=== PATIENT | female | born 1970 | race Caucasian/White ===

== ENCOUNTER 2017-03-23 11:46 | Emergency (ER) | payer OTHER ==
[2017-03-23 12:21] LABS: BASOPHIL COUNT 0.1 K/uL (0-0.1); EOSINOPHIL (%) 2.7 % (0-5); EOSINOPHIL COUNT 0.3 K/uL (0-0.3); HEMATOCRIT 45.6 % (36.0-46.0); IMMATURE GRANULOCYTE (%) 1.3 % (0.0-0.7); IMMATURE GRANULOCYTE COUNT 0.2 K/uL; INSTRUMENT ABS NEUTROPHIL CT 7.2 K/uL; LYMPHOCYTE COUNT 3.5 K/uL (1.0-2.8); MCH 31.2 PG (29.0-34.0); MCHC 33.3 G/DL (30.0-36.0); MCV 93.6 FL (83-99); MEAN PLAT.VOLUME 11.8 uM^3 (9.5-12.4); MONOCYTE (%) 9.2 % (3-12); MONOCYTE COUNT 1.1 K/uL (0-0.8); NEUTROPHIL (%) 58.3 % (45-76); NEUTROPHIL COUNT 7.2 K/uL (1.8-6.4); PLATELET COUNT 238 K/uL (156-360); RBC DIS.WIDTH-CV 12.3 % (11.8-14.6); RBC DIS.WIDTH-SD 42.4 % (39-53); RED BLOOD COUNT 4.87 M/uL (3.80-5.20); WHITE BLOOD COUNT 12.3 K/uL (4.1-10.2)
[2017-03-23 12:25] LABS: AMYLASE 69 IU/L (1-118); CHLORIDE 103 mEq/L (99-109); POTASSIUM 4.7 mEq/L (3.7-5.4); SODIUM 139 mEq/L (136-147)
[2017-03-23 12:27] LABS: GLUCOSE 86 mg/dL (70-99)
[2017-03-23 12:28] LABS: ANION GAP 15 MEQ/L (2-14)
[2017-03-23 12:30] LABS: GFR ESTIMATE (CALCULATED) 57 mL/min/; SERUM ETHYL ALCOHOL < 10 mg/dL
[2017-03-23 12:31] LABS: UREA NITROGEN (BUN) 13 mg/dL (9-23)
[2017-03-23 12:33] LABS: LIPASE 74 U/L (1.0-51.0)
[2017-03-23 12:39] LABS: QUANTITATIVE HCG < 4.0 MIU/ML
[2017-03-23 14:43] LABS: ADD MIUA? YES; BILIRUBIN NEGATIVE; BLOOD SMALL; COLOR STRAW ((YELLOW)); GLUCOSE (STRIP) NEGATIVE; KETONES 20; LEUKOCYTES NEGATIVE; NITRITE NEGATIVE; PROTEIN (STRIP) NEGATIVE; SPECIFIC GRAVITY 1.029 (1.000-1.030); UROBILINOGEN 0.2 MG/DL (0.2-1.0)
[2017-03-23 14:48] LABS: BACTERIA NONE SEEN /HPF; EPITHELIAL CELLS RARE /HPF; MUCUS TRACE /LPF; RED BLOOD CELLS 0-5 /HPF (0-5); UCUL ADDED? NO; WHITE BLOOD CELLS 0-5 /HPF (0-5)
[2017-03-23 14:52] LABS: ADD MEDTOX COMMENT Y; AMPHETAMINE PRESUMPTIVE POSITIVE (500 ng/mL); BARBITURATES NEGATIVE (200 ng/mL); BENZODIAZEPINES NEGATIVE (150 ng/mL); COCAINE NEGATIVE (150 ng/mL); INTERNAL CONTROLS VALID? YES; METHADONE NEGATIVE (200 ng/mL); METHAMPHETAMINE NEGATIVE (500 ng/mL); OPIATES (MORPHINE) NEGATIVE (100 ng/mL); OXYCODONE NEGATIVE (100 ng/mL); PHENCYCLIDINE NEGATIVE (25 ng/mL); PROPOXYPHENE NEGATIVE (300 ng/mL); THC CANNABINOIDS NEGATIVE (50 ng/mL); TRICYCLIC ANTIDEPRESSANTS NEGATIVE (300 ng/mL)
== END 2017-03-23 15:59 | disposition home or self-care (01) ==
LOC: TRA 11:46
PROVIDERS: Emergency Medicine
DX: M54.2 Cervicalgia (principal); R51 Headache; M25.562 Pain in left knee; M25.561 Pain in right knee; T68.XXXA Hypothermia, initial encounter; X31.XXXA Exposure to excessive natural cold, initial encounter; V48.0XXA Car driver injured in noncollision transport accident in nontraffic accident, initial encounter
CPT/HCPCS: 70450; 70486; 71260; 72125; 72129; 72132; 73560; 74177; 80048; 81003; 82150; 83690; 84702; 84999; 85025; 86900; 86901; 90832; 93005; 99281; 99285; G0480; J2405; J3010

== ENCOUNTER 2017-04-30 10:14 | Emergency (ER) | payer OTHER ==
[~2017-04-30] VITALS: Ht 160 cm; Wt 66.8 kg
[2017-04-30 11:10] LABS: ADD MIUA? YES; BILIRUBIN NEGATIVE; BLOOD SMALL; COLOR YELLOW ((YELLOW)); GLUCOSE (STRIP) NEGATIVE; KETONES NEGATIVE; LEUKOCYTES NEGATIVE; NITRITE NEGATIVE; PROTEIN (STRIP) NEGATIVE; SPECIFIC GRAVITY 1.015 (1.000-1.030); UROBILINOGEN 0.2 MG/DL (0.2-1.0)
[2017-04-30 11:11] LABS: HEMATOCRIT 40.8 % (36.0-46.0); MCH 31.2 PG (29.0-34.0); MCHC 32.1 G/DL (30.0-36.0); MCV 97.1 FL (83-99); MEAN PLAT.VOLUME 11.1 uM^3 (9.5-12.4); PLATELET COUNT 163 K/uL (156-360); RBC DIS.WIDTH-CV 12.8 % (11.8-14.6); RBC DIS.WIDTH-SD 46.1 % (39-53); WHITE BLOOD COUNT 10.5 K/uL (4.1-10.2)
[2017-04-30 11:13] LABS: BACTERIA RARE /HPF; EPITHELIAL CELLS RARE /HPF; MUCUS TRACE /LPF; RED BLOOD CELLS 0-5 /HPF (0-5); WHITE BLOOD CELLS 0-5 /HPF (0-5)
[2017-04-30 11:18] LABS: AMPHETAMINE NEGATIVE (500 ng/mL); BARBITURATES NEGATIVE (200 ng/mL); BENZODIAZEPINES NEGATIVE (150 ng/mL); COCAINE NEGATIVE (150 ng/mL); INTERNAL CONTROLS VALID? YES; METHADONE NEGATIVE (200 ng/mL); METHAMPHETAMINE NEGATIVE (500 ng/mL); OPIATES (MORPHINE) NEGATIVE (100 ng/mL); OXYCODONE PRESUMPTIVE POSITIVE (100 ng/mL); PHENCYCLIDINE NEGATIVE (25 ng/mL); PROPOXYPHENE NEGATIVE (300 ng/mL); THC CANNABINOIDS NEGATIVE (50 ng/mL); TRICYCLIC ANTIDEPRESSANTS PRESUMPTIVE POSITIVE (300 ng/mL)
[2017-04-30 11:22] LABS: CHLORIDE 109 mEq/L (99-109); POTASSIUM 3.7 mEq/L (3.7-5.4); SODIUM 141 mEq/L (136-147)
[2017-04-30 11:25] LABS: GLUCOSE 83 mg/dL (70-99)
[2017-04-30 11:26] LABS: ANION GAP 6 MEQ/L (2-14)
[2017-04-30 11:27] LABS: TOTAL BILIRUBIN 0.2 mg/dL (0.0-1.0)
[2017-04-30 11:28] LABS: ALKALINE PHOSPHATASE 44 IU/L (3-129); GFR ESTIMATE (CALCULATED) > 59 mL/min/
[2017-04-30 11:29] LABS: UREA NITROGEN (BUN) 9 mg/dL (9-23)
[2017-04-30 11:32] LABS: LIPASE 126 U/L (1.0-51.0)
[2017-04-30 11:39] LABS: QUANTITATIVE HCG < 4.0 MIU/ML
[2017-04-30] MEDS ORDERED: FLEXERIL10 MG PO (12:15)
[2017-04-30] MEDS ORDERED: ULTRAM50 MG PO (12:15)
[2017-04-30 12:33] VITALS: BP 131/75
== END 2017-04-30 12:36 | disposition home or self-care (01) ==
LOC: EME 10:14
PROVIDERS: Emergency Medicine
DX: R10.9 Unspecified abdominal pain (principal); F17.200 Nicotine dependence, unspecified, uncomplicated; V48.3XXD Unspecified car occupant injured in noncollision transport accident in nontraffic accident, subsequent encounter
CPT/HCPCS: 80053; 81003; 83690; 84702; 85027; 99281; 99284